=== PATIENT | female | born 2000 | race Caucasian/White ===

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

== ENCOUNTER 2020-09-24 08:13 | Day surgery (SDC) | payer OTHER ==
[~2020-09-24] VITALS: Ht 160 cm; Wt 56.2 kg
--- NOTE | 2020-09-24 10:36 | NUR ---
09/24/20 1036 Lillian Lawton 1031-PATIENT ARRIVED TO PACU ON 6L MASK NONAROUSABLE RR EVEN ORAL AIRWAY IN PLACE. PATIENT SR, IVF INFUSING LAYING LEFT LATERAL ABDOMEN SOFT.
--- NOTE | 2020-09-25 08:58 | OR ---
[facility] [address] [place], [place] [address] Signed DATE OF OPERATION: 09/24/2020 SURGEON: Lily Stevens MD PREOPERATIVE DIAGNOSES: 1. Generalized abdominal pain and cramping. 2. Diarrhea. POSTOPERATIVE DIAGNOSIS: Unremarkable colonoscopy. PROCEDURES: Colonoscopy with cold biopsies of the terminal ileum, right colon, transverse colon, left colon, sigmoid colon, and mid rectum. ESTIMATED BLOOD LOSS: None. INDICATIONS: Ovidio is a 20-year-old female, asked to see me for a colonoscopy. Her father in 2013. Ovidio was 14 years old. Following this, she has had diffuse crampy abdominal pain and loose stool and diarrhea ever since. She is single, but still lives with her mom. She does have one son, who was born vaginally. He is now couple of years old. 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 She has been working with her primary care provider with respect to her symptoms. Her blood work including the celiac sprue panel was negative. Stool studies have been negative. She was treated empirically for acid reflux and gastritis, which have been unremarkable with respect to her symptoms. Consequently, she has been asked to see me for a colonoscopy with biopsies. She tells me there is no one in the family with inflammatory bowel disease. No family history of colon cancer or polyps. Her dad did have alpha-1 antitrypsin deficiency. In the office, I gave Ovidio and her mother a pamphlet on colonoscopy. We had looked at that together in detail. She understands the nature of that test. There is risk including, but not limited to gas bloating, crampy abdominal pain, bleeding, perforation requiring surgery, and missed diagnosis. She also understands the need for IV conscious sedation. She had expressed understanding and wished to proceed. PROCEDURE NOTE: Ovidio was taken into our endoscopy suite and placed in the left lateral decubitus position. We started with 8 mg of Versed and 150 mcg of fentanyl. Even then, she was wide awake and talking to us and very directed in her conversation as well as very Electronically Signed By: LILY STEVENS MD 09/25/20 0858 PATIENT NAME: OVIDIO JUAREZ OPERATIVE REPORT DATE OF : 00 REPORT #: [id number] PHYSICIAN: LILY STEVENS MD PCP: IMANI CHOW MD REPORT IS CONFIDENTIAL AND NOT TO BE RELEASED WITHOUT AUTHORIZATION [facility] [address] [place], [place] [address] Signed directed with her hand movements and so forth. Consequently, we asked an anesthesia provider come and help us with increased monitoring sedation with propofol. That proved to be a marino decision and she did take a fair amount of propofol. Once she was adequately sedated, then digital rectal exam was performed. This was unremarkable. The adult colonoscope was introduced and advanced slowly up into the cecum itself. Ovidio is slight of build at 5 feet 3 inches and 126 pounds. Her colon is about 75 to 80 cm long in total length. Her prep was quite excellent. We could easily see the appendiceal orifice and the ileocecal valve. We turned the scope and went up into the terminal ileum about 8 or 10 cm. It appeared quite healthy as well. We went and took a biopsy of the terminal ileum. The scope was brought back into the colon. The scope was slowly withdrawn. The entire colon appeared quite unremarkable. We took biopsies throughout the colon as described above for history of diarrhea. The rectum itself was unremarkable. An additional biopsy came out of the mid rectum. We had just enough room to retroflex the scope and we can see that there was no pathology noted above the anal canal. After this, the gas was suctioned out and colonoscope removed. Ovidio tolerated the procedure well after addition of the propofol. RECOMMENDATIONS: I will see Ovidio and her mother back in my office in 7 to 14 days to review the results. She may very well have a functional bowel disorder. Lily Stevens MD ALB/MODL /[id number] cc: MD Imani Doan MD Chart Filed Incomplete Copies: LILY STEVENS MD, RUSSELL BARR MD Electronically Signed By: LILY STEVENS MD 09/25/20 0858 PATIENT NAME: OVIDIO JUAREZ OPERATIVE REPORT DATE OF : 00 REPORT #: [id number] PHYSICIAN: LILY STEVENS MD PCP: IMANI CHOW MD REPORT IS CONFIDENTIAL AND NOT TO BE RELEASED WITHOUT AUTHORIZATION [address] [address] Signed CHART FILED INCOMPLETE ~ Electronically Signed By: LILY STEVENS MD 09/25/20 0858 PATIENT NAME: OVIDIO JUAREZ IVANNA OPERATIVE REPORT DATE OF : 00 REPORT #: [id number] PHYSICIAN: LILY STEVENS MD PCP: IMANI CHOW MD REPORT IS CONFIDENTIAL AND NOT TO BE RELEASED WITHOUT AUTHORIZATION
--- NOTE | 2020-09-25 14:06 | PATH ---
[facility] [address] [place] [place] [address] Signed SPECIMEN(S): A TERMINAL ILEUM SPECIMEN(S): B ASCENDING COLON SPECIMEN(S): C TRANSVERSE COLON SPECIMEN(S): D DESCENDING COLON SPECIMEN(S): E SIGMOID COLON SPECIMEN(S): F RECTUM SPECIMEN SOURCE: A. TERMINAL ILEUM B. ASCENDING COLON C. TRANSVERSE COLON D. DESCENDING COLON E. SIGMOID COLON F. RECTUM CLINICAL HISTORY: Abdominal pain, diarrhea. Colonoscopy. MICROSCOPIC DESCRIPTION: Histologic sections of all submitted blocks are examined by light microscopy. These findings, together with the gross examination, support the pathologic diagnosis. FINAL PATHOLOGIC DIAGNOSIS: A. Terminal ileum, biopsy: - Ileal mucosa with no histopathologic abnormality. - Negative for active inflammation or granulomas. - Negative for dysplasia or malignancy. B. Colon, ascending, biopsy: - Colonic mucosa with no histopathologic abnormality. - Negative for active, chronic, or microscopic colitis. - Negative for dysplasia or malignancy. C. Colon, transverse, biopsy: - Colonic mucosa with no histopathologic abnormality. - Negative for active, chronic, or microscopic colitis. - Negative for dysplasia or malignancy. D. Colon, descending, biopsy: - Colonic mucosa with no histopathologic abnormality. - Negative for active, chronic, or microscopic colitis. - Negative for dysplasia or malignancy. E. Colon, sigmoid, biopsy: - Colonic mucosa with no histopathologic abnormality. PATIENT NAME: OVIDIO JUAREZ IVANNA PATHOLOGY DATE OF : 00 REPORT #: [id number] PHYSICIAN: ABILIO COLLINS PCP: IMANI CHOW MD REPORT IS CONFIDENTIAL AND NOT TO BE RELEASED WITHOUT AUTHORIZATION [facility] [address] [place], [place] [address] Signed - Negative for active, chronic, or microscopic colitis. - Negative for dysplasia or malignancy. F. Rectum, biopsy: - Rectal mucosa with no histopathologic abnormality. - Negative for active of chronic proctitis. - Negative for dysplasia or malignancy. NAL:cml:C2NR GROSS DESCRIPTION: Six specimens are received in six containers, labeled "JR." A. The specimen, labeled "JR, 1," and designated on the requisition "terminal ileum," is received in formalin and consists of two mcghee soft tissue fragments that measure 0.2-0.3 cm in greatest dimension. The specimen is entirely submitted in cassette (A1). B. The specimen, labeled "JR, 2," and designated on the requisition "ascending colon," is received in formalin and consists of one mcghee soft tissue fragments that measure 0.3 cm in greatest dimension. The specimen is entirely submitted in cassette (B1). C. The specimen, labeled "JR, 3," and designated on the requisition "transverse colon," is received in formalin and consists of two mcghee soft tissue fragments that measure 0.3 cm in greatest dimension. The specimen is entirely submitted in cassette (C1). D. The specimen, labeled "JR, 4," and designated on the requisition "descending colon," is received in formalin and consists of one mcghee soft tissue fragment that measure 0.4 cm in greatest dimension. The specimen is entirely submitted in cassette (D1). E. The specimen, labeled "JR, 5," and designated on the requisition "sigmoid colon," is received in formalin and consists of one mcghee soft tissue fragment that measures 0.3 cm in greatest dimension. The specimen is entirely submitted in cassette (E1). F. The specimen, labeled "JR, 6," and designated on the requisition "rectum," is received in formalin and consists of one mcghee soft tissue fragment that measures 0.3 cm in greatest dimension. The specimen is entirely submitted in cassette (F1). AT (under the direct supervision of a pathologist) The Gross Description was prepared using a voice recognition system. The report was reviewed for accuracy; however, sound-alike word errors, addition and/or deletions may occur. If there is any question about this report, please contact Client Services. PATIENT NAME: OVIDIO JUAREZ PATHOLOGY DATE OF : 00 REPORT #: [id number] PHYSICIAN: ABILIO PATHOLOGY PCP: IMANI CHOW MD REPORT IS CONFIDENTIAL AND NOT TO BE RELEASED WITHOUT AUTHORIZATION [facility] [address] [place] [address] Signed PERFORMING LABORATORY: The technical component was performed by [facility] [address] (Cabinet Professional: Bess Garcia MD; CLIA# [id number]). [facility] [address] [address] (CLIA# [id number]). Diagnostician: Adela Porter MD Pathologist Electronically Signed 09/25/2020 Copies: ~ PATIENT NAME: ANNOVIDIO IVANNA PATHOLOGY DATE OF : 00 REPORT #: [id number] PHYSICIAN: ABILIO PATHOLOGY PCP: IMANI CHOW MD REPORT IS CONFIDENTIAL AND NOT TO BE RELEASED WITHOUT AUTHORIZATION
== END 2020-09-24 11:10 | disposition home or self-care (01) ==
LOC: OPS 08:13 → DS 08:16 → OPS 09:15 → DS 10:30 → OPS 11:10
PROVIDERS: ATTEND Colon & Rectal Surgery
PROC: 0DBL8ZX Excision of Transverse Colon, Via Natural or Artificial Opening Endoscopic, Diagnostic (ICD-10-PCS; 2020-09-24)
PROC: 0DBN8ZX Excision of Sigmoid Colon, Via Natural or Artificial Opening Endoscopic, Diagnostic (ICD-10-PCS; 2020-09-24)
PROC: 0DBP8ZX Excision of Rectum, Via Natural or Artificial Opening Endoscopic, Diagnostic (ICD-10-PCS; 2020-09-24)
PROC: 0DBB8ZX Excision of Ileum, Via Natural or Artificial Opening Endoscopic, Diagnostic (ICD-10-PCS; 2020-09-24)
PROC: 0DBM8ZX Excision of Descending Colon, Via Natural or Artificial Opening Endoscopic, Diagnostic (ICD-10-PCS; 2020-09-24)
PROC: 0DBK8ZX Excision of Ascending Colon, Via Natural or Artificial Opening Endoscopic, Diagnostic (ICD-10-PCS; principal; 2020-09-24 09:15)
DX: R10.84 Generalized abdominal pain (principal); R19.7 Diarrhea, unspecified; J45.909 Unspecified asthma, uncomplicated; F41.8 Other specified anxiety disorders
CPT/HCPCS: 84703; J2250; J2704; J3010

== ENCOUNTER 2021-02-09 16:43 | Emergency (ER) | payer OTHER ==
[~2021-02-09] VITALS: Ht 160 cm; Wt 52.2 kg
--- OUTSIDE RECORDS SUMMARY | 2021-02-09 16:52 | XMS ---
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 Neda VISIT COUNT (12 MO.) 1 [facility] TOTAL 1 NOTE: Visits indicate total known visits. ED/UCC VISIT TRACKING (12 MO.) 02/09/2021 16:[address] [facility] [place] TYPE: Emergency COMPLAINT: - DIFFICULTY BREATHING/COUGH INPATIENT VISIT TRACKING (12 MO.) No inpatient visits to display in this time frame [email or web address]
[2021-02-09] MEDS ORDERED: DEPO-PROVE150 MG/11 IM (17:04)
[2021-02-09] MEDS ORDERED: PREDNISONE50 MG PO (20:47)
--- NOTE | 2021-02-11 15:48 | EKG ---
[facility] [address] [facility] [place], [place] [address] Signed Normal sinus rhythm Normal ECG No previous ECGs available Confirmed by MARK KANG MD ([id number]) on 02/11/2021 3:48:44 PM Electronically Signed By: MARK KANG MD 02/11/21 1548 PATIENT NAME: OVIDIO JUAREZ IVANNA Electrocardiogram DATE OF : 00 PHYSICIAN: MARK KANG MD REPORT #: [id number] REPORT IS CONFIDENTIAL AND NOT TO BE RELEASED WITHOUT AUTHORIZATION
== END 2021-02-09 20:58 | disposition home or self-care (01) ==
LOC: ED 16:43
DX: J06.9 Acute upper respiratory infection, unspecified (principal); M54.9 Dorsalgia, unspecified; Z20.822 Contact with and (suspected) exposure to COVID-19; J45.909 Unspecified asthma, uncomplicated; Z79.899 Other long term (current) drug therapy; Z88.0 Allergy status to penicillin
CPT/HCPCS: 71045; 80053; 83735; 84484; 84703; 85025; 85379; 93005; 93010; 99284-25; C9803; J7512; U0003

== ENCOUNTER 2021-08-25 06:55 | Day surgery (SDC) | payer OTHER ==
[~2021-08-25] VITALS: Ht 160 cm; Wt 50.0 kg
--- NOTE | ~2021-08-25 | OR ---
[facility] [address] [place], [place] [address] Draft DATE OF OPERATION: 08/25/2021 SURGEON: Diane Kerr MD PREOPERATIVE DIAGNOSES: Pelvic pain, dyspareunia. POSTOPERATIVE DIAGNOSES: Pelvic pain, dyspareunia with pelvic endometriosis. PROCEDURE: Laparoscopy with laser fulguration of endometriosis. ANESTHESIA: General ET. ESTIMATED BLOOD LOSS: Minimal. DRAINS: None. INDICATIONS AND FINDINGS: The patient is a 21-year-old female 1, para 1, who has been having worsening pelvic pain as well as abnormal bleeding. She does desire . She had been receiving Depo prior to deciding to proceed with . Because of her pain, it was felt that this was likely related to endometriosis and it was felt the diagnostic procedure was needed with treatment if necessary. At the time of surgery, exam under anesthesia was normal. At the time of laparoscopy, however, there was significant endometriosis in the pelvic cul-de-sac in the right posterior ovarian fossa, the posterior uterus as well as the right sidewall above the pelvic brim. DESCRIPTION OF PROCEDURE: The patient was prepped and draped in the dorsal lithotomy position. A weighted speculum was placed. The anterior lip of the cervix was visualized and grasped with a single-tooth tenaculum. The Hulka clamp was then placed. The tenaculum and speculum were removed. Attention was directed to the abdomen. The infraumbilical area was injected with 0.5% Marcaine plain. Incision made with a knife and each layer serially elevated and incised until the fascia was opened and identified and stay sutures of 0 Vicryl were placed. The peritoneum was opened bluntly. The Dimas cannula was placed PATIENT NAME: OVIDIO JUAREZ OPERATIVE REPORT DATE OF : 00 REPORT #: [id number] PHYSICIAN: DIANE KERR MD PCP: IMANI COUGHLIN MD REPORT IS CONFIDENTIAL AND NOT TO BE RELEASED WITHOUT AUTHORIZATION [facility] [address] [place], [place] [address] Draft and the balloon inflated and was tied into place. Placement of the scope confirmed proper positioning. CO2 was then introduced into the abdomen. Following this, the initial evaluation did show evidence of endometriosis. A secondary port was placed on the left side. This was placed in left mid abdomen after transilluminating, injected with the Marcaine incision made with a knife and a 5 mm port placed under direct vision. A 3rd port was placed on the right side in the same manner again, using a 5 mm port. The posterior cul-de-sac was then treated using the CO2 laser fiber. This was used on a continuous power of 8. Cul-de-sac was initially tried to be treated, but the laser was not functioning at that time, and the laser was removed and the monopolar cautery with a spatula tip was used in the posterior cul-de-sac and over the posterior wall of the uterus. Following this, the laser was functioning and it was switched over to this again and the remaining cul-de-sac lesions were treated with the laser fairly superficially. There was a lot of superficially active disease in the cul-de-sac. There was also active disease in the right posterior ovarian fossa, which was also treated with the laser. Above the pelvic brim on the right side, there was also endometriosis, which was treated. The left posterior ovarian fossa had no evidence of any disease and the anterior cul-de-sac also had no evidence of disease. Following this, the abdomen was copiously irrigated and inspected and there was no evidence of any remaining endometriosis. However, there was some bleeding from the patient's left ovary where it had been grasped and torn slightly. The monopolar cautery was used with a spatula tip to control bleeding on the ovary. There was no evidence of any adhesions or any other endometriosis and the procedure was then terminated. The instruments were removed from the abdomen after allowing as much CO2 as possible to escape. The fascia of the umbilicus was reidentified and closed with a running suture of 0 Vicryl. Bleeding points in the subcu were controlled with cautery. The skin incisions were closed with subcuticular sutures of 3-0 Vicryl Rapide. Attention was directed down below. The instruments were removed from the vagina. The cervix was visualized. There was no evidence of any ongoing bleeding and the procedure was terminated. All sponge and needle counts were correct. She tolerated the procedure well and was taken to the recovery room in good condition. MD TRAY Nur/RAFAEL /[id number] PATIENT NAME: OVIDIO JUAREZ OPERATIVE REPORT DATE OF : 00 REPORT #: [id number] PHYSICIAN: DIANE KERR MD PCP: IMANI COUGHLIN MD REPORT IS CONFIDENTIAL AND NOT TO BE RELEASED WITHOUT AUTHORIZATION [facility] [address] [place], [place] [address] Draft cc: Imani Coughlin MD Copies: IMANI COUGHLIN MD ~ PATIENT NAME: OVIDIO JUAREZ IVANNA OPERATIVE REPORT DATE OF : 00 REPORT #: [id number] PHYSICIAN: DIANE KERR MD PCP: IMANI COUGHLIN MD REPORT IS CONFIDENTIAL AND NOT TO BE RELEASED WITHOUT AUTHORIZATION
[~2021-08-25 06:55] MED LIST changes: +DEPO-PROVE150 MG/11 IM; +PREDNISONE50 MG PO
--- NOTE | 2021-08-25 11:17 | NUR ---
08/25/21 1117 Radha Koch 1044 PT ARRIVED IN PACU WIDE AWAKE WITH NO C/O'S. 1050 DR AT BEDSIDE. ALL QUESTIONS ANSWERED. 1100 SIPPING ON WATER. NO C/O'S. 1109 TO DS. REPORT GIVEN TO RN.
--- NOTE | 2021-08-25 11:32 | NUR ---
1109: PT RETURNS TO UNIT FROM PACU VIA STRETCHER, AWAKE AND ALERT ON ARRIVAL. VSS, RESP EVEN AND UNLABORED. DRESSINGS X3 WITH SMALL AMOUNT OF RED DRAINAGE. PT DENIES NAUSEA AND PATY PO INTAKE WELL. REPORTS 5/10 PAIN AND REQUESTS RX. PO PAIN RX ADMINSITERED ORDERED. PT ALSO VOICES DESIRE TO VOID. DANGLES AT THE BEDSIDE. PATY WELL. DENIES DIZZINESS AND SOB. AMBULATES TO BR WITH STANDBY ASSIST FROM THIS RN. SUCCESSFUL FIRST POSTOP VOID, 100MLS. MESH PANTIES AND PERIPAD PROVIDED. BACK TO STRETHCER. SCDS IN PLACE. POC DISCUSSED AND PT AGREEABLE. NO NEEDS VOICED, CALL LIGHT WITHIN REACH
--- NOTE | 2021-08-25 12:34 | NUR ---
1155: PT WITH CALL FOR THIS RN. INQUIRES ABOUT LENGTH OF STAY AND PARAMETERS DISCUSSED. VSS, RESP EVEN AND UNLABORED. NO CHANGE TO LAP SITES X3. PT WITH IMPROVING PAIN LEVEL BUT STILL REPORTS 4/10 AND REQUESTS PAIN RX PRIOR TO DC TO BRIDGE THE GAP BETWEEN DC AND WHEN HER PRESCRIPTION IS AVAILABLE FOR PICKUP. RX ADMINISTERED PO ORDERED, SEE PT EMAR. SL REMOVED WITH CATH TIP INTACT AND PRESSURE APPLIED TO SITE, WNL. PT TO DRESS INDEPENDENTLY FOR DC. 1215: DC INSTRUCTIONS PROVIDED AND DISCUSSED ORDERED. PT VOICES UNDERSTANDING AND DENIES QUESTIONS AND CONCERNS AT THIS TIME. WHEELED OFF OF UNIT BY THIS RN IN WC. TRANSFERS INTO VEHICLE INDEPENDENTLY AND APPROPRIATELY. NO PHYSICAL S/S OF DISTRESS AT THIS TIME
== END 2021-08-25 12:15 | disposition home or self-care (01) ==
LOC: DS 06:55
PROVIDERS: ATTEND Obstetrics & Gynecology
PROC: 0WBH4ZX Excision of Retroperitoneum, Percutaneous Endoscopic Approach, Diagnostic (ICD-10-PCS; principal; 2021-08-25 10:00)
DX: N80.3 Endometriosis of pelvic peritoneum (principal); J45.20 Mild intermittent asthma, uncomplicated; Z88.0 Allergy status to penicillin; Z88.8 Allergy status to other drugs, medicaments and biological substances
CPT/HCPCS: A9270; J0131; J1100; J1885; J2001; J2250; J2405; J2704; J3010; J7121

== ENCOUNTER 2021-10-08 08:49 | Emergency (ER) | payer OTHER ==
[~2021-10-08] VITALS: Ht 160 cm; Wt 49.0 kg
--- OUTSIDE RECORDS SUMMARY | 2021-10-08 08:52 | XMS ---
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 02/10/2021-Current PHONE: Unknown LEE MCINTYRE MD Obstetrics \T\ Gynecology 12/11/2017-Current PHONE: [phone] Reynaldo has no Care Guidelines for this patient. Neda VISIT COUNT (12 MO.) 2 IVAN Griffin TOTAL 2 NOTE: Visits indicate total known visits. ED/UCC VISIT TRACKING (12 MO.) 10/08/2021 08:49 [facility] OR TYPE: Emergency COMPLAINT: - VOMITING 02/09/2021 16:44 [facility] OR TYPE: Emergency COMPLAINT: - DIFFICULTY BREATHING/COUGH DIAGNOSES: - Allergy status to penicillin - Contact with and (suspected) exposure to COVID-19 - Acute upper respiratory infection, unspecified - Other custodial (current) drug therapy - Dorsalgia, unspecified - Headache, unspecified - Influenza due to unidentified influenza virus with other respiratory manifestations - Unspecified asthma, uncomplicated INPATIENT VISIT TRACKING (12 MO.) No inpatient visits to display in this time frame [email or web address]
[2021-10-08] MEDS ORDERED: PSEUDOEPHEDRIN120 MG PO (09:19)
== END 2021-10-08 11:30 | disposition home or self-care (01) ==
LOC: ED 08:49
DX: K29.00 Acute gastritis without bleeding (principal); Z88.0 Allergy status to penicillin; Z88.8 Allergy status to other drugs, medicaments and biological substances; Z79.899 Other long term (current) drug therapy
CPT/HCPCS: 84703; 99284; A9270

== ENCOUNTER 2022-02-05 18:44 | Emergency (ER) | payer OTHER ==
[~2022-02-05] VITALS: Ht 160 cm; Wt 62.6 kg
[~2022-02-05 18:44] MED LIST changes: +PSEUDOEPHEDRIN120 MG PO
--- OUTSIDE RECORDS SUMMARY | 2022-02-05 18:46 | XMS ---
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 Neda VISIT COUNT (12 MO.) 3 IVAN Griffin TOTAL 3 NOTE: Visits indicate total known visits. ED/UCC VISIT TRACKING (12 MO.) 02/05/2022 18:45 [facility] OR TYPE: Emergency COMPLAINT: - DIFFICULTY SWALLOWING 10/08/2021 08:49 [facility] OR TYPE: Emergency COMPLAINT: - VOMITING DIAGNOSES: - Other senior living (current) drug therapy - Allergy status to other drugs, medicaments and biological substances - Acute gastritis without bleeding - Allergy status to penicillin - Vomiting, unspecified 02/09/2021 16:[address] [facility] [place] TYPE: Emergency COMPLAINT: - DIFFICULTY BREATHING/COUGH DIAGNOSES: - Dorsalgia, unspecified - Acute upper respiratory infection, unspecified - Allergy status to penicillin - Unspecified asthma, uncomplicated - Headache, unspecified - Other senior living (current) drug therapy - Contact with and (suspected) exposure to COVID-19 - Influenza due to unidentified influenza virus with other respiratory manifestations INPATIENT VISIT TRACKING (12 MO.) No inpatient visits to display in this time frame [email or web address]
== END 2022-02-05 21:46 | disposition home or self-care (01) ==
LOC: ED 18:44
DX: O99.412 Diseases of the circulatory system complicating pregnancy, second trimester (principal); I88.9 Nonspecific lymphadenitis, unspecified; I25.10 Atherosclerotic heart disease of native coronary artery without angina pectoris; Z3A.15 15 weeks gestation of pregnancy; Z20.822 Contact with and (suspected) exposure to COVID-19; O99.512 Diseases of the respiratory system complicating pregnancy, second trimester; J45.909 Unspecified asthma, uncomplicated; Z88.0 Allergy status to penicillin; Z88.8 Allergy status to other drugs, medicaments and biological substances; Z79.899 Other long term (current) drug therapy
CPT/HCPCS: 36415; 85025; 87502; 87880; 96372; 99283; C9803; J1100; U0003

== ENCOUNTER 2022-07-25 02:23 | Inpatient (IN) | payer OTHER ==
[~2022-07-25] VITALS: Ht 160 cm; Wt 75.8 kg
--- NOTE | 2022-07-25 02:50 | NUR ---
covid 19 swab done to both nares and sent to in house lab.
--- NOTE | 2022-07-25 09:16 | PR ---
[facility] [address] [facility] [place], [place] [address] Signed Progress Notes IP Datetime Report Generated by CPN: 07/25/2022 09:16 PROGRESS NOTES: [id number] Impression: Reassuring Heart Rate Procedures: Sterile Vag Exam Plan: Continue Present Management; Augmentation VITAL SIGNS: [id number] Vital Signs: Reviewed; Within Normal Limits EXAM: [id number] Dilatation: 4.5 Effacement: 85 Station: -1 Contractions: q 2 min but not picking up well MEMBRANES: [id number] Amniotic Fluid Color: Clear Comments: Still very comfortable. Will increase pit as needed for adequate pattern. FETUS A: [id number] FHR Baseline: 125 Variability: Minimal - >Undetectable to <=5bpm Accelerations: 15X15 Decelerations: None FHR Category: Category II Presentation: Vertex Comments on Fetus A: previously reactive FETUS B: [id number] Signing Physician: Diane Kerr MD Copies: ~ *Electronically Signed* 07/25/22915 DIANE KERR MD PATIENT NAME: OVIDIO JUAREZ IVANNA PROGRESS NOTE DATE OF : 00 PHYSICIAN: DIANE KERR MD RPT #: [id number] REPORT IS CONFIDENTIAL AND NOT TO BE RELEASED WITHOUT AUTHORIZATION
--- NOTE | 2022-07-25 13:03 | PR ---
[facility] [address] [facility] [place], [place] [address] Signed Progress Notes IP Datetime Report Generated by CPN: 07/25/2022 13:03 PROGRESS NOTES: [id number] Impression: Normal Progression of Labor Procedures: Sterile Vag Exam Plan: Continue Present Management VITAL SIGNS: [id number] Vital Signs: Reviewed; Within Normal Limits EXAM: [id number] Dilatation: 7.0 Effacement: 95 Station: -1 Contractions: q 2 min but not picking up well MEMBRANES: [id number] Amniotic Fluid Color: Clear Comments: Still uncomfortable but just had epidural placed. She has progressed so will continue. FETUS A: [id number] FHR Baseline: 125 Variability: Minimal - >Undetectable to <=5bpm Accelerations: 15X15 Decelerations: None FHR Category: Category II Presentation: Vertex Comments on Fetus A: previously reactive FETUS B: [id number] Signing Physician: Diane Kerr MD Copies: ~ *Electronically Signed* 07/25/22 1303 DIANE KERR MD PATIENT NAME: OVIDIO JUAREZ IVANNA PROGRESS NOTE DATE OF : 00 PHYSICIAN: DIANE KERR MD RPT #: [id number] REPORT IS CONFIDENTIAL AND NOT TO BE RELEASED WITHOUT AUTHORIZATION
--- NOTE | 2022-07-26 09:00 | PR ---
[facility] [address] [facility] [place], [place] [address] Signed PP Progress Notes Datetime Report Generated by CPN: 07/26/2022 09:00 SUBJECTIVE: [id number] Pain: Within Normal Limits Vital Signs: [id number] Vital Signs: Reviewed; Within Normal Limits EXAM: Ongoing Cardiovascular: Not Done Respiratory: Not Done Abdomen/Uterus: Abnormal Lochia: Normal Vulva/Perineum: Not Done Breasts: Not Done CVA Tenderness: Not Done Extremities: Normal Incision: Not Applicable Progress: Normal Exam Comments: Fundus firm, NT @ U-2. H/H 11.4/33.6, WBC 14.2, plat 207k IMPRESSION/PLAN/PROCEDURES: [id number] Impression: Normal Progression Plan: Discharge Procedures: None Progress Notes: Doing well. Desires D/C and I think this is reasonable. Signing Physician: Diane Kerr MD Copies: ~ *Electronically Signed* 07/26/22 09 DIANE KERR MD PATIENT NAME: OVIDIO JUAREZ IVANNA PROGRESS NOTE DATE OF : 00 PHYSICIAN: DIANE KERR MD RPT #: [id number] REPORT IS CONFIDENTIAL AND NOT TO BE RELEASED WITHOUT AUTHORIZATION
== END 2022-07-26 17:48 | disposition home or self-care (01) | DRG 807 ==
LOC: FBCO 02:23 → FBC 02:39
PROVIDERS: ADMIT Obstetrics & Gynecology; ATTEND Obstetrics & Gynecology
PROC: 10E0XZZ Delivery of Products of Conception, External Approach (ICD-10-PCS; principal; 2022-07-25)
PROC: 0KQM0ZZ Repair Perineum Muscle, Open Approach (ICD-10-PCS; 2022-07-25)
PROC: 00HU33Z Insertion of Infusion Device into Spinal Canal, Percutaneous Approach (ICD-10-PCS; 2022-07-25)
PROC: 3E0R3BZ Introduction of Anesthetic Agent into Spinal Canal, Percutaneous Approach (ICD-10-PCS; 2022-07-25)
DX: O42.02 Full-term premature rupture of membranes, onset of labor within 24 hours of rupture (principal); Z37.0 Single live birth; Z67.40 Type O blood, Rh positive; Z20.822 Contact with and (suspected) exposure to COVID-19; O70.1 Second degree perineal laceration during delivery; Z3A.38 38 weeks gestation of pregnancy; Z87.891 Personal history of nicotine dependence
CPT/HCPCS: 36415; 85027; 86850; 86900; 86901; 87502; A9270; C9803; J2001; J2405; J2590; J2795; J7121; U0003

== ENCOUNTER 2023-11-05 11:48 | Inpatient (IN) | payer OTHER ==
[~2023-11-05] VITALS: Ht 154.9 cm; Wt 81.6 kg
[2023-11-05] MEDS ORDERED: MAGNESIUM HYDROXIDE/AL HYDROX 30 ML CUP PO PRN ×2 (12:30→22:15)
[2023-11-05] MEDS ORDERED: CALCIUM CARBONATE 500 MG CHEW PO PRN ×2 (12:30→22:15)
[2023-11-05] MEDS ORDERED: LACTATED RINGER'S 1,000 ML IV SCH (12:30)
[2023-11-05] MEDS ORDERED: OXYTOCIN/DEXTROSE 5% 20 UNITS/100 ML BAG IV SCH (12:30)
[2023-11-05 12:37] LABS: HEMATOCRIT 34.7 % (35.0-50.0); HEMOGLOBIN 11.8 g/dL (12.0-18.0); MCH 27.9 (27-36); RBC 4.23 M/ul (4.3-5.7); RDW 14.5 (10.5-15.0)
[2023-11-05 13:05] LABS: AMPHETAMINES, URINE NEGATIVE (NEGATIVE); BARBITURATES, URINE NEGATIVE (NEGATIVE); BENZODIAZEPINE, URINE NEGATIVE (NEGATIVE); BUPRENORPHINE, URINE NEGATIVE (NEGATIVE); CANNABINOID, URINE NEGATIVE (NEGATIVE); COCAINE, URINE NEGATIVE (NEGATIVE); ECSTASY, URINE NEGATIVE (NEGATIVE); FENTANYL, URINE NEGATIVE (NEGATIVE); METHADONE, URINE NEGATIVE (NEGATIVE); OPIATES, URINE NEGATIVE (NEGATIVE); OXYCODONE, URINE NEGATIVE (NEGATIVE); PHENCYCLIDINE, URINE NEGATIVE (NEGATIVE)
[2023-11-05 13:17] LABS: ABO O; RH POSITIVE
[2023-11-05 13:18] LABS: ANTIBODY SCREEN NEGATIVE
[2023-11-05 13:20] VITALS: BP 130/85
[2023-11-05] MEDS ORDERED: OXYTOCIN/0.9 % SODIUM CHLORIDE 500 ML IV SCH ×2 (15:30→22:15)
[2023-11-05] MEDS ORDERED: ROPIVACAINE 0.2% 200 ML BAG ONE (19:19)
[2023-11-05] MEDS ORDERED: ePHEDrine sulfate 5 MG/ML SYRINGE IV PRN (20:15)
[2023-11-05] MEDS ORDERED: LACTATED RINGER'S 2,000 ML IV ONE (20:15)
[2023-11-05] MEDS ORDERED: ROPIVACAINE 0.2% 200 ML BAG EPIDURAL SCH (20:15)
[2023-11-05] MEDS ORDERED: LACTATED RINGER'S 500 ML IV PRN (20:15)
--- NOTE | 2023-11-05 21:25 | PR ---
[facility] [address] [place], [place] [address] Signed Progress Notes IP Datetime Report Generated by CPN: 11/05/2023 21:25 PROGRESS NOTES: [id number] Impression: Normal Progression of Labor; Reassuring Heart Rate Procedures: Intrauterine Pressure Catheter; Sterile Vag Exam Plan: Continue Present Management; Anticipate Vaginal Delivery Informed Consent Obtain: Vaginal Delivery VITAL SIGNS: [id number] Vital Signs: Reviewed; Within Normal Limits EXAM: [id number] Dilatation: 9.0 Effacement: 90 Station: 0 Contractions: q 1-2 min MEMBRANES: [id number] Comments: Pt seen and examined. Doing well. Comfortable w/ epidural. Feeling increased pelvic pressure. Anterior lip of the cervix somewhat edematous. Some bloody show noted. Anticipate soon FETUS A: [id number] FHR Baseline: 125 Variability: Moderate 6-25bpm Accelerations: 15X15 Decelerations: None FHR Category: Category I Presentation: Vertex Comments on Fetus A: No evidence of metabolic acidosis FETUS B: [id number] Signing Physician: Yvon Resendiz DO Copies: ~ *Electronically Signed* 11/05/23 4736 YVON RESENDIZ (TIN) DO PATIENT NAME: OVIDIO JUAREZ PROGRESS NOTE DATE OF : 00 PHYSICIAN: YVON RESENDIZ) DO RPT #: [id number] REPORT IS CONFIDENTIAL AND NOT TO BE RELEASED WITHOUT AUTHORIZATION
[2023-11-05] MEDS ORDERED: WITCH HAZEL/GLYCERIN 1 EA PAD TOP PRN (22:15)
[2023-11-05] MEDS ORDERED: HYDROCODONE/ACETA 5/325 TAB PO PRN (22:15)
[2023-11-05] MEDS ORDERED: HYDROCORTISONE ACETATE 25 MG SUPP PR PRN (22:15)
[2023-11-05] MEDS ORDERED: OXYCODONE/APAP 5/325 TAB PO PRN (22:15)
[2023-11-05] MEDS ORDERED: MAGNESIUM HYDROXIDE 30 ML UDC PO PRN (22:15)
[2023-11-05] MEDS ORDERED: ACETAMINOPHEN 325 MG TAB PO PRN (22:15)
[2023-11-05] MEDS ORDERED: BENZOCAINE 60 ML AEROSOL TOP PRN (22:15)
[2023-11-05] MEDS ORDERED: OXYCODONE HCL 5 MG TAB PO PRN (22:15)
[2023-11-05] MEDS ORDERED: IBUPROFEN 600 MG TAB PO PRN (22:15)
[2023-11-06 05:17] LABS: HEMATOCRIT 33.8 % (35.0-50.0); HEMOGLOBIN 11.6 g/dL (12.0-18.0); MCHC 34.2 g/dl (30-36); MCV 81.8 fl (81-99); RBC 4.13 M/ul (4.3-5.7); RDW 14.2 (10.5-15.0)
[2023-11-06] MEDS ORDERED: SENNOSIDES/DOCUSATE 1 EA TAB PO SCH (09:00)
--- NOTE | 2023-11-06 09:07 | PR ---
[facility] [address] [facility] [place] [address] Signed PP Progress Notes Datetime Report Generated by CPN: 11/06/2023 09:06 SUBJECTIVE: [id number] Pain: Within Normal Limits Vital Signs: [id number] Vital Signs: Reviewed; Within Normal Limits Cardiovascular: Not Done Respiratory: Not Done Abdomen/Uterus: Abnormal Lochia: Normal Vulva/Perineum: Not Done Breasts: Not Done CVA Tenderness: Not Done Extremities: Normal Incision: Not Applicable Progress: Normal Exam Comments: Fundus firm, NT @ U-2. H/H 11.6/33.8, WBC 21.1, plat 238k IMPRESSION/PLAN/PROCEDURES: [id number] Impression: Normal Progression Plan: Continue Present Management Progress Notes: Doing well. Will plan on D/C in the am. Signing Physician: Diane Kerr MD Copies: ~ *Electronically Signed* 11/06/23905 DIANE KERR MD PATIENT NAME: OVIDIO JUAREZ PROGRESS NOTE DATE OF : 00 PHYSICIAN: DIANE KERR MD RPT #: [id number] REPORT IS CONFIDENTIAL AND NOT TO BE RELEASED WITHOUT AUTHORIZATION
--- NOTE | 2023-11-07 07:16 | PR ---
[facility] [address] [facility] [place] [address] Signed PP Progress Notes Datetime Report Generated by CPN: 11/07/2023 07:16 SUBJECTIVE: [id number] Pain: Within Normal Limits Vital Signs: [id number] Vital Signs: Reviewed; Within Normal Limits Cardiovascular: Not Done Respiratory: Not Done Abdomen/Uterus: Abnormal Lochia: Normal Vulva/Perineum: Not Done Breasts: Not Done CVA Tenderness: Not Done Extremities: Normal Incision: Not Applicable Progress: Normal Exam Comments: Fundus firm, NT @ U-2. IMPRESSION/PLAN/PROCEDURES: [id number] Impression: Normal Progression Plan: Discharge Procedures: None Progress Notes: Doing well. She is ready for D/C. Signing Physician: Diane Kerr MD Copies: ~ *Electronically Signed* 11/07/23 0716 DIANE KERR MD PATIENT NAME: OVIDIO JUAREZ PROGRESS NOTE DATE OF : 00 PHYSICIAN: DINAE KERR MD RPT #: [id number] REPORT IS CONFIDENTIAL AND NOT TO BE RELEASED WITHOUT AUTHORIZATION
== END 2023-11-07 11:34 | disposition home or self-care (01) | DRG 807 ==
LOC: FBCO 11:48 → FBC 12:05
PROVIDERS: ADMIT Obstetrics & Gynecology; ATTEND Obstetrics & Gynecology
PROC: 10E0XZZ Delivery of Products of Conception, External Approach (ICD-10-PCS; principal; 2023-11-05)
PROC: 3E0R3BZ Introduction of Anesthetic Agent into Spinal Canal, Percutaneous Approach (ICD-10-PCS; 2023-11-05)
PROC: 00HU33Z Insertion of Infusion Device into Spinal Canal, Percutaneous Approach (ICD-10-PCS; 2023-11-05)
DX: O76 Abnormality in fetal heart rate and rhythm complicating labor and delivery (principal); Z37.0 Single live birth; O69.81X0 Labor and delivery complicated by cord around neck, without compression, not applicable or unspecified; Z3A.38 38 weeks gestation of pregnancy
CPT/HCPCS: 01960; 36415; 80307; 85027; 85060; 86850; 86900; 86901; A9270; J2590; J7121